=== PATIENT | male | born 1965 | race Caucasian/White ===

== ENCOUNTER 2022-01-23 23:26 | Emergency (ER) | payer SELFPAY ==
[~2022-01-23] VITALS: Ht 170.2 cm; Wt 94.2 kg
[2022-01-23 23:36] VITALS: BP 164/103
[2022-01-24 01:26] LABS: BASOPHILS % 0.5 % (0.0-2.0); EOSINOPHILS % 1.6 % (0.0-5.0); HEMATOCRIT. 47.2 % (42.0-52.0); HEMOGLOBIN. 16.3 g/dL (14.0-18.0); LYMPHOCYTES % 39.7 % (20.0-50.0); MEAN CORPUSCULAR VOLUME 95.4 fL (80.0-94.0); MEAN PLATELET VOLUME 7.7 fl (7.4-10.4); MONOCYTES % 7.2 % (2.0-8.0); PLATELET 293 x1000/uL (130-400); RED BLOOD CELL COUNT 4.95 mill/uL (4.7-6.1); RED CELL DISTRIBUTION WIDTH 13.4 % (11.6-14.6)
[2022-01-24 01:38] LABS: CHLORIDE 108 mEq/L (98-107)
[2022-01-24] MEDS ORDERED: ENAL5TAB75 MT (05:50)
== END 2022-01-24 07:04 | disposition home or self-care (01) ==
LOC: ER 23:26
DX: I10 Essential (primary) hypertension (principal)
CPT/HCPCS: 36415; 71045; 80048; 85025; 93005; 99285

== ENCOUNTER 2022-01-28 00:42 | Emergency (ER) | payer MEDICAID ==
[~2022-01-28] VITALS: Ht 170.2 cm; Wt 91.7 kg
[~2022-01-28 00:42] MED LIST: ENAL5TAB75 MT
[2022-01-28 05:16] LABS: BASOPHILS % 0.8 % (0.0-2.0); EOSINOPHILS % 1.3 % (0.0-5.0); HEMATOCRIT. 45.6 % (42.0-52.0); HEMOGLOBIN. 15.6 g/dL (14.0-18.0); LYMPHOCYTES % 47.6 % (20.0-50.0); MEAN CORPUSCULAR HEMOGLOBIN 32.8 pg (28.0-32.0); MEAN CORPUSCULAR VOLUME 95.8 fL (80.0-94.0); MEAN PLATELET VOLUME 7.5 fl (7.4-10.4); MONOCYTES % 6.5 % (2.0-8.0); NEUTROPHILS % 43.8 % (40.0-76.0); PLATELET 300 x1000/uL (130-400); RED BLOOD CELL COUNT 4.76 mill/uL (4.7-6.1); RED CELL DISTRIBUTION WIDTH 13.1 % (11.6-14.6)
[2022-01-28 05:28] LABS: CHLORIDE 105 mEq/L (98-107)
[2022-01-28 05:36] LABS: PROTHROMBIN TIME 10.4 sec (9.6-11.0)
[2022-01-28 05:45] VITALS: BP 155/80
[2022-01-28] MEDS ORDERED: AMLO5TAB88 MT (05:59)
== END 2022-01-28 06:00 | disposition home or self-care (01) ==
LOC: ER 01:12
DX: I10 Essential (primary) hypertension (principal); R00.2 Palpitations
CPT/HCPCS: 36415; 71045; 80053; 83880; 84484; 85025; 93005; 99285